=== PATIENT | male | born 1970 | race Caucasian/White ===

== ENCOUNTER 2019-02-21 19:12 | Emergency (ER) | payer OTHER ==
[~2019-02-21] VITALS: Ht 170.2 cm; Wt 101.0 kg
[2019-02-21 20:25] VITALS: BP 160/90
[2019-02-21] MEDS ORDERED: CEFD300C PO (20:35)
--- NOTE | 2019-02-21 20:35 | PHYS DOC ---
Past History Past Medical History: High Cholesterol, Hypertension Past Surgical History: No Surgical History Alcohol Use: None Drug Use: None Adult General Chief Complaint Chief Complaint: SORE THROAT HPI HPI Patient is a 48-year-old male who presented to ER today for evaluation of nonproductive cough for week, sore throat, upper respiratory congestion. Patient denies any chest pain, no abdominal pain, no neck pain, no headache. Patient had tried to take [id number] medication but did not get better so he came here for evaluation. Patient decided to quit smoking today. aLL OTHER ros IS NEGATIVE UNLESS OTHERWISE NOTED IN hpi Review of Systems Review of Systems See above Allergies Allergies Allergies Coded Allergies Type Severity Reaction Last Updated Verified No Known Drug Allergies 02/21/19 No Physical Exam Physical Exam See above Constitutional: Well developed, well nourished, no acute distress, non-toxic appearance. [] HENT: Normocephalic, atraumatic, bilateral external ears normal, oropharynx moist, no oral exudates, nose normal. [] Eyes: PERRLA, EOMI, conjunctiva normal, no discharge. [] Neck: Normal range of motion, no tenderness, supple, no stridor. [] Cardiovascular:Heart rate regular rhythm, no murmur [] Lungs & Thorax: Bilateral breath sounds clear to auscultation [] Abdomen: Bowel sounds normal, soft, no tenderness, no masses, no pulsatile masses. [] Skin: Warm, dry, no erythema, no rash. [] Back: No tenderness, no CVA tenderness. [] Extremities: No tenderness, no cyanosis, no clubbing, ROM intact, no edema. [] Neurologic: Alert and oriented X 3, normal motor function, normal sensory function, no focal deficits noted. [] Psychologic: Affect normal, judgement normal, mood normal. [] Current Patient Data Vital Signs Vital Signs Date Time Temp Pulse Resp B/P (MAP) Pulse Ox O2 Delivery O2 Flow Rate FiO2 02/21/19 19:33 99.0 90 18 98 Room Air EKG EKG [] Radiology/Procedures Radiology/Procedures [][address] [address] IMAGING REPORT Signed PATIENT: SELINA MERRITT ACCOUNT: [id number] : 1970 LOCATION: ER AGE: 48 SEX: M EXAM STATUS: REG ER ORD. PHYSICIAN: FARHANA ROBERTO DO REASON: Congestion, COUGH FOR 5 DAYS PROCEDURE: CHEST PA & LATERAL CHEST PA LATERAL Technique: PA and lateral views of the chest were obtained. Clinical History: Comparison: August 22, 2016. Findings: The heart and pulmonary vasculature appear within normal limits. The lungs are clear. The pleural margins are clear. Impression: No acute chest process is seen. Electronically signed by: Aldo Livingston III, MD (02/21/2019 8:39 PM) [facility] DICTATED AND SIGNED BY: ALDO LIVINGSTON III, MD DATE: 02/21/192038 CC: KISHORE TREJO DO; FARHANA ROBERTO DO ~ Course & Med Decision Making Course & Med Decision Making Pertinent Labs and Imaging studies reviewed. (See chart for details) x-ray were read by radiologist as no acute problem however this physician who looked at the x-ray himself, noted he had right middle lobe infiltration. Dragon Disclaimer Dragon Disclaimer This electronic medical record was generated, in whole or in part, using a voice recognition dictation system. Departure Departure: Impression: Primary Impression: CAP (community acquired pneumonia) Disposition: HOME, SELF-CARE Condition: STABLE Referrals: KISHORE TREJO DO (PCP) follow up with your doctor next week. Patient Instructions: Pneumonia, Adult Scripts Cefdinir (CEFDINIR) 300 Mg Capsule 1 CAP PO BID for pneumonia for 10 Days, #20 CAP Prov: FARHANA ROBERTO DO 02/21/19 FARHANA ROBERTO DO Feb 21, 2019 20:35
--- NOTE | 2019-02-21 20:42 | RAD ---
CHEST PA LATERAL Technique: PA and lateral views of the chest were obtained. Clinical History: Comparison: August 22, 2016. Findings: The heart and pulmonary vasculature appear within normal limits. The lungs are clear. The pleural margins are clear. Impression: No acute chest process is seen. Electronically signed by: Daniel Umana III, MD (02/21/2019 8:39 PM) [facility]
== END 2019-02-21 20:43 | disposition home or self-care (01) ==
LOC: ER 19:12
DX: J18.9 Pneumonia, unspecified organism (principal); E78.00 Pure hypercholesterolemia, unspecified; I10 Essential (primary) hypertension
CPT/HCPCS: 71046; 99284

== ENCOUNTER 2020-01-10 21:09 | Emergency (ER) | payer OTHER ==
[~2020-01-10] VITALS: Ht 170.2 cm; Wt 101.0 kg
[~2020-01-10 21:09] MED LIST: CEFD300C PO
[2020-01-10 21:25] VITALS: BP 157/106
[2020-01-10] MEDS ORDERED: CLIN300C8 PO (21:42)
--- NOTE | 2020-01-10 21:42 | PHYS DOC ---
Past History Past Medical History: Arthritis, High Cholesterol, Hypertension (ERASMO ANN APRN) Past Surgical History: Other Additional Past Surgical Histo: HERNIA REPAIR (ERASMO ANN APRN) Alcohol Use: Occasionally Drug Use: None (ERASMO ANN APRN) General Adult EDM: Chief Complaint: INSECT BITE HPI: HPI: Patient is a 49-year-old male who presents to the emergency department with complaints of a red tender area in his suprapubic area that he noticed yesterday. Patient reports concern that is a brown recluse spider bite. He denies any drainage or bleeding from the site. He denies any itching. He denies any fever, nausea, vomiting, body aches, fatigue, or abdominal pain. Patient currently rates the pain 10 out of 10 on the pain scale, he denies any alleviating factors, the pain is worse with palpation. (ERASMO ANN APRN) Review of Systems: Review of Systems: Complete ROS is negative unless otherwise noted in HPI. (ERASMO ANN APRN) Allergies: Allergies: Allergies Coded Allergies Type Severity Reaction Last Updated Verified No Known Drug Allergies 02/21/19 No (ERASMO ANN APRN) Physical Exam: PE: See Above Constitutional: Well developed, well nourished, no acute distress, non-toxic appearance. [] HENT: Normocephalic, atraumatic, bilateral external ears normal, nose normal. [] Eyes: PERRLA, EOMI, conjunctiva normal, no discharge. [] Neck: Normal range of motion, no stridor. [] Cardiovascular:Heart rate regular rhythm Lungs & Thorax: Respirations even and unlabored, no retractions, no respiratory distress Abdomen: soft, no tenderness Skin: Warm, dry; 1.5 cm diameter area of erythema with central pustule and fluctuance noted to the patient's pubis, consistent with cutaneous abscess and cellulitis, appears to be an ingrown hair. Extremities: No cyanosis, ROM intact, no edema. [] Neurologic: Alert and oriented X 3, no focal deficits noted. [] Psychologic: Affect normal, judgement normal, mood normal. [] (ERASMO ANN APRN) Current Patient Data: Vital Signs: Vital Signs Date Time Temp Pulse Resp B/P (MAP) Pulse Ox O2 Delivery O2 Flow Rate FiO2 01/10/20 21:25 97.8 80 18 157/106 (123) 99 Room Air (ERASMO ANN APRN) EKG: EKG: [] (ERASMO ANN APRN) Radiology/Procedures: Radiology/Procedures: Indication: Suprapubic abscess Procedure: The patient was positioned appropriately and the skin over the incision site was cleansed with alcohol. A 16-gauge IV catheter was inserted into the center of the fluctuant area and a moderate amount of bloody pus was expressed. The wound was very superficial, no need for packing. The patient tolerated the procedure well Complications: None (ERASMO ANN APRN) Heart Score: Risk Factors: Risk Factors: DM, Current or recent (<one month) smoker, HTN, HLP, family history of CAD, obesity. Risk Scores: Score 0 - 3: 2.5% MACE over next 6 weeks - Discharge Home Score 4 - 6: 20.3% MACE over next 6 weeks - Admit for Clinical Observation Score 7 - 10: 72.7% MACE over next 6 weeks - Early Invasive Strategies (ERASMO ANN APRN) Course & Med Decision Making: Course & Med Decision Making Pertinent Labs and Imaging studies reviewed. (See chart for details) [] (ERASMO ANN APRN) Course & Med Decision Making I have reviewed the ANIMAL ANATOMY TEACHER's note and plan of care. I was available for consultation as needed during the patient's visit in the emergency department. I agree with the clinical impression, plan, and disposition. (EFRAIN FOSS DO) Sheila Disclaimer: Sheila Disclaimer: This electronic medical record was generated, in whole or in part, using a voice recognition dictation system. (ERASMO ANN APRN) Departure Departure: Impression: Primary Impression: Ingrowing hair Additional Impression: Cutaneous abscess of other sites Disposition: 01 DC HOME SELF CARE/HOMELESS Condition: STABLE Referrals: KISHORE TREJO DO (PCP) Patient Instructions: Abscess, [id number] Additional Instructions: Apply warm moist heat to the affected area 3 times a day and as needed for comfort. Take Tylenol or ibuprofen as needed for pain. If the area of redness increases fill the prescription and take it as directed. Follow-up with your primary care doctor next week, return to the ER if symptoms worsen or fever develops. Thank you for choosing [facility] this evening, we wish you a speedy recovery! Scripts Clindamycin Hcl (CLINDAMYCIN HCL) 300 Mg Capsule 1 CAP PO TID for wound infection, #21 CAP 0 Refills Prov: ERASMO ANN APRN 01/10/20 ERASMO ANN APRN Jan 10, 2020 21:42 EFRAIN FOSS DO Jan 11, 2020 21:23
== END 2020-01-10 21:45 | disposition home or self-care (01) ==
LOC: ER 21:09
DX: L02.211 Cutaneous abscess of abdominal wall (principal); L73.1 Pseudofolliculitis barbae; M19.90 Unspecified osteoarthritis, unspecified site; E78.00 Pure hypercholesterolemia, unspecified; I10 Essential (primary) hypertension
CPT/HCPCS: 10060; 99283

== ENCOUNTER 2020-08-01 22:45 | Emergency (ER) | payer OTHER ==
[~2020-08-01] VITALS: Ht 170.2 cm; Wt 101.0 kg
[~2020-08-01 22:45] MED LIST changes: +CLIN300C9 PO
--- NOTE | 2020-08-01 23:12 | PHYS DOC ---
Past History Past Medical History: Arthritis, High Cholesterol, Hypertension Past Surgical History: Other Additional Past Surgical Histo: HERNIA REPAIR Alcohol Use: Occasionally Drug Use: None Adult General Chief Complaint Chief Complaint: FEVER HPI HPI Patient is a 50-year-old male presents to the emergency department with a chief complaint of productive cough, fever and body aches for 3 to 4 days. States he saw his primary care physician and tested negative for Covid. States he was also tested for influenza but had not yet the result back yet. 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 Patient is a smoker also and is continuing to smoke. States over the last day or 2 he thinks he has had increased cough, and sputum production. Denies sore throat, chest pain, new shortness of breath, abdominal pain, nausea, vomiting, dysuria, hematuria, blood in the stool or diarrhea. States he took Tylenol earlier in the day but that said all he took. Review of Systems Review of Systems Review of systems otherwise unremarkable except noted in HPI Allergies Allergies Allergies Coded Allergies Type Severity Reaction Last Updated Verified No Known Drug Allergies 02/21/19 No Physical Exam Physical Exam Constitutional: Well developed, well nourished, no acute distress, non-toxic appearance. [] HENT: Normocephalic, atraumatic, bilateral external ears normal, oropharynx moist, no oral exudates, nose normal. [] Eyes: conjunctiva normal, no discharge. [] Neck: Normal range of motion, no tenderness, supple, no stridor. [] Cardiovascular:Heart rate regular rhythm, no murmur [] Lungs & Thorax: Mild generalized bilateral rhonchi, and end expiratory wheeze Abdomen: Bowel sounds normal, soft, no tenderness, no masses, no pulsatile masses. [] Skin: Warm, dry, no erythema, no rash. [] Extremities: No tenderness, no cyanosis, no clubbing, ROM intact, no edema. [] Neurologic: Alert and oriented X 3, no focal deficits noted. [] Psychologic: Affect normal, judgement normal, mood normal. [] EKG EKG [] Radiology/Procedures Radiology/Procedures [] Heart Score C/O Chest Pain: No Risk Factors: Risk Factors: DM, Current or recent (<one month) smoker, HTN, HLP, family history of CAD, obesity. Risk Scores: Risk Factors: DM, Current or recent (<one month) smoker, HTN, HLP, family history of CAD, obesity. Course & Med Decision Making Course & Med Decision Making Patient is a 50-year-old male who presents with cough, fevers at home to 101, congestion and mucus Signs not concerning. Physical exam noted above. Patient given ibuprofen. Covid negative earlier this week. Influenza pending from his primary care physician. Chest x-ray abnormal, suggestive of right-sided community-acquired pneumonia. Given breathing treatment, dexamethasone and started on doxycycline for COPD exacerbation likely secondary to pneumonia Discussed all findings with patient and advised on antibiotic use at home. Advised to cease tobacco use as this could continue to exacerbate and cause further pneumonias. Advised to follow-up with primary care physician on Monday. Gave return precautions to the ED. Patient grateful, verbalized understanding and agreed with plan of discharge. Dragon Disclaimer Dragon Disclaimer This electronic medical record was generated, in whole or in part, using a voice recognition dictation system. Departure Departure: Impression: Primary Impression: COPD exacerbation Additional Impressions: Pneumonia Wheezing Referrals: KISHORE TREJO DO (PCP) Patient Instructions: Chronic Obstructive Pulmonary Disease, Chronic O bstructive Pulmonary Disease Exacerbation, Pneumonia, Adult Additional Instructions: Thank you for coming into the emergency department today to allow us to take care of you. Please read all the attached information carefully. As discussed, you had signs and symptoms of COPD with exacerbation, likely secondary to a respiratory infection such as pneumonia. You are given a breathing treatment, steroids and started on antibiotics. Please continue your antibiotics as prescribed. Please continue to use your albuterol inhaler that your primary care physician gave you as prescribed. Please follow-up with your primary care physician first thing Monday morning to update on ED visit and set up a follow- up visit for repeat chest x-ray and reevaluation. Please come back to the emergency department immediately with new or concerning symptoms as discussed. Scripts Doxycycline Hyclate (DOXYCYCLINE HYCLATE) 100 Mg Tablet 1 TAB PO BID for copd/pneumonia for 7 Days, #13 TAB Prov: NEIDA LO MD 08/01/20 Problem Qualifiers NEIDA LO MD Aug 01, 2020 23:12
[2020-08-01] MEDS ORDERED: IBUPROFEN 600 MG TABLET. PO ONE (23:15)
[2020-08-01 23:18] VITALS: BP 158/73
--- NOTE | 2020-08-01 23:34 | RAD ---
Exam: Chest one view INDICATION: Cough TECHNIQUE: Frontal view of the chest Comparisons: None FINDINGS: The cardiomediastinal silhouette and pulmonary vessels are within normal limits. The lung and pleural spaces are clear. IMPRESSION: No acute cardiopulmonary process. Electronically signed by: Shantel Leigh MD (08/01/2020 11:31 PM) [facility]IE
[2020-08-01] MEDS ORDERED: DOXY100T PO (23:37)
[2020-08-01] MEDS ORDERED: DEXAMETHASONE 4 MG TABLET PO ONE (23:45)
[2020-08-01] MEDS ORDERED: DOXYCYCLINE HYCLATE 100 MG TABLET PO ONE (23:45)
[2020-08-01] MEDS ORDERED: IPRATRPIUM/ALBUTEROL 0.5/2.5MG 3 ML NEBU. NEB ONE (23:45)
== END 2020-08-01 23:47 | disposition home or self-care (01) ==
LOC: ER 22:45
DX: J44.1 Chronic obstructive pulmonary disease with (acute) exacerbation (principal); J18.9 Pneumonia, unspecified organism; E78.5 Hyperlipidemia, unspecified; I10 Essential (primary) hypertension
CPT/HCPCS: 71045; 94640; 99284; J8540

== ENCOUNTER → 2020-09-01 | Outpatient (CLI) | payer OTHER ==
[~2020-09-01] MED LIST changes: +DOXY100T PO
--- NOTE | 2020-09-01 09:13 | RAD ---
EXAM: Abdomen sonogram. HISTORY: Pancytopenia. Alcohol abuse. TECHNIQUE: Sonographic imaging of the abdomen was performed. COMPARISON: None. FINDINGS: There is hepatomegaly and hepatic steatosis. There is coarse hepatic echotexture and suspec perico cervical nodularity due to cirrhosis. No focal hepatic lesion is seen. The gallbladder is unremar kable. The common bile duct is normal in caliber. The kidneys and spleen are unremarkable. There is a n echogenic pancreas. No focal pancreatic lesion is seen. The inferior vena cava and aorta are partia lly obscured due to bowel gas. IMPRESSION: 1. Hepatomegaly and hepatic steatosis with suspected superimposed cirrhosis. 2. Partially obscured midline structures due to bowel gas. 3. Normal spleen size. 4. No acute sonographic finding. Electronically signed by: Conchis Barbosa MD (09/01/2020 9:11 AM) [id number]
== END ==
LOC: US 08:01
PROVIDERS: ATTEND Internal Medicine Hematology & Oncology
DX: K76.0 Fatty (change of) liver, not elsewhere classified (principal); F10.10 Alcohol abuse, uncomplicated; D61.811 Other drug-induced pancytopenia
CPT/HCPCS: 76700

== ENCOUNTER → 2020-09-14 | Outpatient (CLI) | payer OTHER ==
[2020-09-14 09:27] LABS: BASO % 1 % (0-3); EOS % 1 % (0-3); HEMATOCRIT 29.2 % (39.0-53.0); HEMOGLOBIN 8.9 g/dL (13.0-17.5); LYMPH # 1.7 x10^3/uL (1.0-4.8); LYMPH % 82 % (24-48); MEAN CORPUSCULAR HEMOGLOBIN 29 pg (25-35); MEAN CORPUSCULAR HGB CONC 31 g/dL (31-37); MEAN CORPUSCULAR VOLUME 94 fL (79-100); MONO # 0.1 x10^3/uL (0.0-1.1); MONO % 4 % (0-9); NEUT # 0.2 x10^3uL (1.8-7.7); NEUT % 12 % (31-73); RED BLOOD COUNT 3.09 x10^6/uL (4.30-5.70); RED CELL DISTRIBUTION WIDTH 18.4 % (11.5-14.5); WHITE BLOOD COUNT 2.1 x10^3/uL (4.0-11.0)
[2020-09-14 09:34] LABS: PLATELET COUNT 15 x10^3/uL (140-400)
[2020-09-14 10:40] LABS: % EOS 1 % (0-5); % LYMPHS 72 % (24-48); % MONOS 7 % (0-10); % SEGS 20 % (35-66); PLT ESTIMATE DECREASED (ADEQUATE)
[2020-09-14 10:41] LABS: PLATELET CLUMP PRESENT
== END ==
LOC: LAB 08:37
PROVIDERS: ATTEND Internal Medicine Hematology & Oncology
DX: D61.811 Other drug-induced pancytopenia (principal)
CPT/HCPCS: 36415; 85007; 85025